=== PATIENT | female | born 1965 | race Two or more races ===

== ENCOUNTER → 2023-05-03 | Outpatient (REF) ==
[~2023-05-03] MED LIST: ADVIL PO; LOPR50TA OR; ROBITUSSIN PO; [UNRECOGNIZED DRUG - OTHER] PO
== END ==
LOC: M EMP 09:35
PROVIDERS: ATTEND Family Medicine
DX: Z11.52 Encounter for screening for COVID-19 (principal)

== ENCOUNTER → 2025-10-13 | Outpatient (CLI) | payer OTHER | LOC: M WUC 12:40 | DX: M75.31 Calcific tendinitis of right shoulder (principal) ==